=== PATIENT | male | born 1960 | race Caucasian/White ===

== ENCOUNTER 2017-08-02 10:51 | Emergency (ER) | payer OTHER, SELFPAY ==
[2017-08-02] MEDS ORDERED: Lidocaine 1% 20 ML MDV ONE (11:11)
[2017-08-02] MEDS ORDERED: Adacel (T-DAP) 0.5 ML VIAL ONE (11:11)
[2017-08-02] MEDS ORDERED: Bacitracin Zinc 1 Packet ONE (11:42)
== END 2017-08-02 11:50 | disposition home or self-care (01) ==
LOC: BURERS 10:51
DX: S61.112A Laceration without foreign body of left thumb with damage to nail, initial encounter (principal); I10 Essential (primary) hypertension; F17.210 Nicotine dependence, cigarettes, uncomplicated; Z23 Encounter for immunization; Z79.899 Other long term (current) drug therapy; W26.0XXA Contact with knife, initial encounter; Y92.69 Other specified industrial and construction area as the place of occurrence of the external cause; Y99.0 Civilian activity done for income or pay
CPT/HCPCS: 12002; 90471; 90715; J2001

== ENCOUNTER 2019-04-17 16:06 | Emergency (ER) | payer SELFPAY ==
[2019-04-17] MEDS ORDERED: Lidocaine 1% PF 5 ML VIAL ONE (16:30)
--- NOTE | 2019-04-17 19:06 | RAD ---
LEFT THIRD FINGER: 04/17/19 A laceration is seen through the tip of the third finger that appears to be only soft tissue in natur e. No underlying fracture was noted. No opaque foreign bodies were seen. IMPRESSION: Prominent soft tissue laceration. POS: HOME
== END 2019-04-17 16:42 | disposition home or self-care (01) ==
LOC: BURERS 16:06
DX: S61.203A Unspecified open wound of left middle finger without damage to nail, initial encounter (principal); I10 Essential (primary) hypertension; F17.210 Nicotine dependence, cigarettes, uncomplicated; W29.3XXA Contact with powered garden and outdoor hand tools and machinery, initial encounter; Z79.899 Other long term (current) drug therapy
CPT/HCPCS: J2001